=== PATIENT | male | born 1940 | race Two or more races ===

== ENCOUNTER 2018-02-21 00:18 | Day surgery (SDC) | payer BC ==
[~2018-02-21] VITALS: Ht 167.6 cm; Wt 71.2 kg
[~2018-02-21 00:18] MED LIST: ALLO-1 PO; AMLO-99 PO; AMO500 PO; ASPI81TA94 PO; ATOR40TA24 PO; LIS20 PO; MET500 PO; OMEG-11 PO; SITA1TAB13 PO; SITA1TAB17 PO
--- NOTE | 2018-02-21 06:56 | Post Operative Progress Note ---
Post Operative Progress Note Date: February 21, 2018 Time: 08:59 Surgeon: brett Anesthesia: dr logan Pre-Op Diagnosis: screening colonoscopy Post-Op Diagnosis: 2 mm polyp in right colon and 2 more at 45 cm Procedure(s): colonoscopy and polypectomy KIM WANG MD February 21, 2018 06:56
--- NOTE | 2018-02-21 06:57 | Short(Outpt) Discharge Summary ---
Discharge Summary Reason for Hosp/Final Diag: (1) Encounter for screening colonoscopy Hospital Course & Plan: 3 2 mm polyps in colon Departure Discharge to: Home Discharge Instructions Home Meds Reported Medications Aspirin (ASPIRIN) 81 Mg Tab.chew, 81 MG PO QDAY, TAB.CHEW 02/18/18 Amlodipine Besylate (AMLODIPINE BESYLATE) 10 Mg Tablet, 1 TAB PO QDAY, TAB 02/18/18 Sitagliptin Phos/Metformin Hcl (JANUMET 50-1,000 MG TABLET) 1 Each Tablet, 1000 MG PO BID 02/18/18 Allopurinol (Allopurinol) 300 Mg Tablet, 300 MG PO QPM 06/27/07 Atorvastatin Calcium (Lipitor) 40 Mg Tablet, 20 MG PO QPM 08/03/08 Lisinopril (Prinivil) 20 Mg Tab, 20 MG PO QDAY, 0 Refills 06/27/07 Discontinued Reported Medications Sitagliptin Phos/Metformin Hcl (JANUMET 50-500 MG TABLET) 1 Each Tablet, 1 EACH PO 11/15/15 Fish Oil/[place]al[place]-3 Fatty Acids (Fish Oil 1,000 Mg Capsule) 1 Cap Capsule, 1 CAP PO DAILY 06/27/07 Amoxicillin (Amoxil) 500 Mg Cap, 500 MG PO QAM 06/27/07 Diet: Regular Activity: As Tolerated KIM WANG MD February 21, 2018 06:57
[2018-02-21 07:00] VITALS: BP 150/84
[2018-02-21] MEDS ORDERED: PROPOFOL EMUL(*) 10MG/ML 20 ML 40 ML ONE (07:11)
[2018-02-21] MEDS ORDERED: LIDOCAINE/SOD BICARB 8.4% SYR ID ONE (07:20)
[2018-02-21] MEDS ORDERED: NORMOSOL R SOLN(*) 1000 ML BAG 1,000 ML IV PRN (07:20)
[2018-02-21] MEDS ORDERED: SUCCINYLCHOL CHL 200MG/10ML VL ONE (08:45)
[2018-02-21] MEDS ORDERED: PROPOFOL EMUL(*) 10MG/ML 20 ML 20 ML ONE (08:51)
[2018-02-21 09:00] VITALS: BP 84/58
[2018-02-21 09:13] VITALS: BP 97/71
[2018-02-21 09:33] VITALS: BP 141/81
[2018-02-21 09:35] VITALS: BP 138/83
[2018-02-21 09:37] VITALS: BP 127/88
--- NOTE | 2018-02-21 15:09 | OPERATIVE REPORT 1 ---
EVENT DATE: February 21, 2018 SURGEON: Arnav Galindo MD ANESTHESIOLOGIST: Jono Musa MD ANESTHESIA: Sedation. PREOPERATIVE DIAGNOSIS Screening colonoscopy. POSTOPERATIVE DIAGNOSES 1. A 2 mm polyp in the right colon. 2. Two 2 mm polyps at 45 cm. PROCEDURE PERFORMED Colonoscopy with polypectomy. DESCRIPTION OF PROCEDURE Patient was placed in the left lateral decubitus position and given intravenous sedation. Rectal exam was unremarkable. Flexible colonoscope was inserted and advanced to the cecum. He had an excellent bowel prep. The ileocecal valve and base of the cecum were identified. Scope was slowly withdrawn. Just above the ileocecal valve, he had a small 2 mm projection. This was removed with the cold cup. The rest of the right colon, transverse, descending colon were normal. At 45 cm, he had a couple of small, 2 mm polyps. These were relatively close together, only within a few centimeters. These were removed with the cold cup. The rest of the sigmoid colon and rectum were normal. Scope was retroflexed. That appeared to be normal. Patient should have another colonoscopy in five years if these wrap turner to be adenomatous polyps. [facility]
== END 2018-02-21 09:50 | disposition home or self-care (01) ==
LOC: OR 00:18
PROVIDERS: ATTEND Surgery
DX: Z12.11 Encounter for screening for malignant neoplasm of colon (principal); D12.6 Benign neoplasm of colon, unspecified; E11.9 Type 2 diabetes mellitus without complications
CPT/HCPCS: 00811; 36416; 45380; 82948; 88305; J0330; J2704